=== PATIENT | female | born 1960 | race Caucasian/White ===

== ENCOUNTER → 2020-08-25 | Outpatient (CLI) | payer OTHER ==
--- NOTE | 2020-08-25 08:47 | US ---
EXAMINATION TYPE: US carotid duplex BILAT DATE OF EXAM: 08/25/2020 COMPARISON: NONE CLINICAL HISTORY: R09.89 Carotid Bruit R01.1 Cardiac Murmur. Bruit, pt has no complaints at this time EXAM MEASUREMENTS: RIGHT: Peak Systolic Velocity (PSV) cm/sec ----- Right CCA: 93.8 ----- Right ICA: 120 ----- Right ECA: 131 ICA/CCA ratio: 1.3 RIGHT: End Diastole cm/sec ----- Right CCA: 14.9 ----- Right ICA: 34.5 ----- Right ECA: 15.3 LEFT: Peak Systolic Velocity (PSV) cm/sec ----- Left CCA: 144 ----- Left ICA: 132 ----- Left ECA: 125 ICA/CCA ratio: 0.9 LEFT: End Diastole cm/sec ----- Left CCA: 29.2 ----- Left ICA: 43.7 ----- Left ECA: 18.9 VERTEBRALS (direction of flow): Right Vertebral: Antegrade Left Vertebral: Antegrade Rhythm: Normal No significant stenosis seen, left ICA tortuous Whelan scale images show no significant focal plaque at carotid bulb level bilaterally. Increased veloc ity bilateral common carotid arteries raises concern for underlying uncontrolled hypertension. No sig nificant increased velocity in the internal carotid arteries bilaterally. IMPRESSION: No hemodynamically significant stenosis. Suspect underlying uncontrolled hypertension. Correlate clinically. Criteria for Assigning % of Stenosis / Diameter reduction (Estimation based on the indirect measurements of the internal carotid artery velocities (ICA PSV). 1. Normal (no stenosis)=ICA PSV < 125 cm/s: ratio < 2.0: ICA EDV<40 cm/s. 2. Less than 50% stenosis=ICA PSV < 125 cm/s: ratio < 2.0: ICA EDV<40 cm/s. 3. 50 to 69% stenosis=ICA PSV of 125 to 230 cm/s: ration 2.0 ? 4.0: ICA EDV 40-100 cm/s. 4. Greater than 70% stenosis to near occlusion= ICA PSV > 230 cm/s: ratio > 4.0: ICA EDV > 100 cm/s. 5. Near occlusion= ICA PSV velocities may be low or undetectable: variable ratio and ICA EDV. 6. Total occlusion=unable to detect flow.
--- NOTE | 2020-08-25 11:55 | ECHOF ---
Referral Reason:R09.89 carotid bruit MEASUREMENTS -------- HEIGHT: 160.0 cm WEIGHT: 77.1 kg BP: RVIDd: 2.8 cm (< 3.3) IVSd: 1.1 cm (0.6 - 1.1) LVIDd: 4.9 cm (3.9 - 5.3) LVPWd: 1.1 cm (0.6 - 1.1) IVSs: 1.6 cm LVIDs: 3.3 cm LVPWs: 1.4 cm LA Diam: 2.9 cm (2.7 - 3.8) LAESV Index (A-L): 18.89 ml/m Ao Diam: 2.9 cm (2.0 - 3.7) AV Cusp: 2.1 cm (1.5 - 2.6) MV EXCURSION: 11.540 mm (> 18.000) MV EF SLOPE: 31 mm/s (70 - 150) EPSS: 1.2 cm MV E Charles: 1.10 m/s MV DecT: 190 ms MV A Charles: 0.85 m/s MV E/A Ratio: 1.29 FINDINGS -------- Sinus rhythm. This was a technically adequate study. The left ventricular size is normal. There is borderline concentric left ventricular hypertrophy. Overall left ventricular systolic function is normal with, an EF between 55 - 60 %. The right ventricle is normal in size. Normal LA size by volume 22+/-6 ml/m2. The right atrial size is normal. Interatrial and interventricular septum intact. Aortic valve is trileaflet and is mildly thickened. The mitral valve is normal. Mild mitral regurgitation is present. The tricuspid valve appears structurally normal. Mild tricuspid regurgitation present. There is no pulmonic regurgitation present. The aortic root size is normal. Normal inferior vena cava with normal inspiratory collapse consistent with estimated right atrial pre ssure of 5 mmHg. There is no pericardial effusion. CONCLUSIONS -------- 1. There is borderline concentric left ventricular hypertrophy. 2. Overall left ventricular systolic function is normal with, an EF between 55 - 60 %. 3. Normal LA size by volume 22+/-6 ml/m2. 4. Aortic valve is trileaflet and is mildly thickened. 5. Mild mitral regurgitation is present. 6. Mild tricuspid regurgitation present. 7. There is no pericardial effusion. GENERATION TECHNICIAN: Bianca Giordano RDCS
== END | disposition home or self-care (01) ==
LOC: RADUSWWP 07:49
PROVIDERS: ATTEND Family Medicine
DX: I08.3 Combined rheumatic disorders of mitral, aortic and tricuspid valves (principal); R09.89 Other specified symptoms and signs involving the circulatory and respiratory systems
CPT/HCPCS: 93306; 93880

== ENCOUNTER → 2020-09-02 | Outpatient (CLI) | payer OTHER | END | disposition home or self-care (01) | LOC: LABWHC1 16:09 | PROVIDERS: ATTEND Family Medicine | DX: J06.9 Acute upper respiratory infection, unspecified (principal) | CPT/HCPCS: U0003; C9803 ==

== ENCOUNTER → 2020-10-20 | Outpatient (CLI) | payer BC ==
--- NOTE | 2020-10-21 08:55 | CTL ---
EXAMINATION TYPE: CT Low Dose Lung DATE OF EXAM ORDERED: 10/20/2020 HISTORY: Tobacco use. Lung cancer screening CT DLP: 72.70 mGycm Automated exposure control for dose reduction was used. SCREENING VISIT: Initial COMPARISON: None TECHNIQUE: Low dose computed tomography scan was performed through the chest at 1 mm thick sections a nd reconstructed images in the coronal plane at [address] DIAGNOSTIC QUALITY: Satisfactory FINDINGS: LUNG NODULES: None. LUNGS: COPD: Severity: None Fibrosis: Severity: None Lymph nodes: None Other findings: None RIGHT PLEURAL SPACE: Effusion: None Calcification: Some pleural calcification in the posterior medial right apex. Series 4 image 38 Thickening: None Pneumothorax: None LEFT PLEURAL SPACE: Effusion: None Calcification: None Thickening: None Pneumothorax: None HEART: Heart Size: Normal Coronary calcification: Mild to moderate Pericardial effusion: None OTHER FINDINGS: Upper abdomen: Normal Bony thorax: Normal Supraclavicular region: Normal Other: Ascending thoracic aorta at the level of main pulmonary artery is 3.5 cm. Main pulmonary arter y the bifurcation is 2.6 cm. IMPRESSION: 1. No suspicious changes to suggest neoplasm FOLLOW UP CT CHEST RECOMMENDATION: Low-dose CT chest one year CT LUNG RAD: Lung-Rad 2 Benign Appearance or Behavior
--- NOTE | 2020-10-21 10:31 | BD ---
EXAMINATION TYPE: Axial Bone Density DATE OF EXAM: 10/20/2020 COMPARISON: NONE CLINICAL HISTORY: Height: 5 FT 3 /4 IN Weight: 177 FRAX RISK QUESTIONS: Alcohol (3 or more units per day): NO Family History (Parent hip fracture): YES Glucocorticoids (More than 3mos): NO (Ex: prednisone, prednisolone, methylprednisolone, dexamethasone, and hydrocortisone). History of Fracture in Adulthood: YES Secondary Osteoporosis: 1. Type 1 Diabetes: NO 2. Hyperthyroidism: NO 3. Menopause before 45: NO 4. Malnutrition: NO 5. Chronic liver disease: NO Rheumatoid Arthritis: NO Current Tobacco Use: YES RISK FACTORS HISTORY OF: History of Wrist Fracture: RT WRIST When: 1986 Surgery to Spine/Hip(right/left)/Wrist (right/left): NO Family History of Osteoporosis: NO Active: NO Diet low in dairy products/other sources of calcium: NO Postmenopausal woman: TOTAL HYST AGE 46 Take estrogen and/or progesterone medications: TOOK HRT 2-3 MONTHS FOLLOWING HYST NO LONGER TAKES Lost more than 2 inches in height since high school: NO MEDICATIONS: Additional Medications: ADVAIR,INHALER FOR ALLERGIES Additional History: EXAM MEASUREMENTS: Bone mineral densitometry was performed using the [employer] System. Bone mineral density as measured about the Lumbar spine is: ----- L1-L4(G/cm2): 1.179 T Score Values are as follows: ----- L2: -1.4 ----- L3: -0.9 ----- L4: 2.4 ----- L1-L4: 0.0 BASELINE Bone mineral density about the R hip (g/cm2): 0.686 Bone mineral density about the L hip (g/cm2): 0.762 T Score values are as follows: -----R Neck: -2.5 -----L Neck: -2.0 -----R Total: -2.0 -----L Total: -1.2 BASELINE IMPRESSION: osteopenia NOTE: T-SCORE=SD OF THE YOUNG ADULT MEAN.
--- NOTE | 2020-10-22 11:00 | MM ---
Reason for exam: screening (asymptomatic). Last mammogram was performed 3 years and 7 months ago. History: Patient is postmenopausal. Took hormonal contraceptives for 2 years. Took estrogen for 3 months. Physical Findings: A clinical breast exam by your physician is recommended on an annual basis and results should be correlated with mammographic findings. MG Screening Mammo w CAD Bilateral CC and MLO view(s) were taken. Prior study comparison: March 09, 2017, mammogram, performed at [facility]. June 12, 2015, mammogram, performed at [facility]. There are scattered fibroglandular densities. No significant changes when compared with prior studies. ASSESSMENT: Benign, BI-RAD 2 RECOMMENDATION: Routine screening mammogram of both breasts in 1 year.
== END | disposition home or self-care (01) ==
LOC: RADMAMWWP 15:56
PROVIDERS: ATTEND Family Medicine
DX: Z12.31 Encounter for screening mammogram for malignant neoplasm of breast (principal); Z12.2 Encounter for screening for malignant neoplasm of respiratory organs; M85.80 Other specified disorders of bone density and structure, unspecified site; F17.210 Nicotine dependence, cigarettes, uncomplicated; Z78.0 Asymptomatic menopausal state
CPT/HCPCS: 71271; 77067; 77080

== ENCOUNTER → 2022-01-03 | Outpatient (CLI) | payer BC ==
--- NOTE | 2022-01-03 16:11 | CT ---
EXAMINATION TYPE: CT abdomen pelvis wo con DATE OF EXAM: 01/03/2022 COMPARISON: None available HISTORY: flank pain and left anterior pain CT DLP: 936 mGycm Automated exposure control for dose reduction was used. TECHNIQUE: Helical acquisition of images was performed from the lung bases through the pelvis. FINDINGS: LUNG BASES: No significant abnormality is appreciated. LIVER/GB: No significant abnormality is appreciated. PANCREAS: Mild fatty infiltration of the pancreas. SPLEEN: Bulky spleen measuring 13.2 cm. ADRENALS: No significant abnormality is seen. KIDNEYS: 5 mm at least partially obstructing stone is seen at the left pelviureteric junction with di lated left renal collecting system. 3 mm nonobstructing stone is seen at the lower pole of the left k idney. Mild left renal pelvis urothelial thickening, possibly related to chronic inflammatory/infecti ous process. Branching stone seen at the lower pole of right kidney measuring up to 13 mm. No hydrour eter bilaterally or right-sided hydronephrosis. Suspected bilateral renal cysts without gross suspici ous feature, suboptimally assessed by this CT scan and more numerous on the right side. FREE AIR: No free air is visualized RETROPERITONEAL ADENOPATHY: None visualized REPRODUCTIVE ORGANS: Previous hysterectomy. No gross adnexal mass. URINARY BLADDER: No significant abnormality is seen. PELVIC ADENOPATHY: None visualized. OSSEOUS STRUCTURES: Degenerative changes of the lower lumbar spine. BOWEL: Scattered uncomplicated colonic diverticulosis. OTHER: Scattered arterial atherosclerotic calcifications. Infrarenal abdominal aortic ectasia measuri ng up to 2.2 cm. No sizable ascites. IMPRESSION: At least partially obstructing stone measuring 5 mm at the left pelviureteric junction as described hari rodríguez. Associated infection cannot be excluded. Recommend correlation with urinalysis results. Nonobst ructing bilateral renal calculi larger on the right side. Other incidental findings as described jeramy allen
== END | disposition home or self-care (01) ==
LOC: RADCTMAIN 13:15
PROVIDERS: ATTEND Nurse Practitioner Family
DX: N20.0 Calculus of kidney (principal)
CPT/HCPCS: 74176

== ENCOUNTER → 2022-01-07 | Outpatient (CLI) | payer BC ==
[2022-01-07 18:04] LABS: African American GFR (CKD) 65.5 (60.0-200.0); Albumin 4.2 g/dL (3.8-4.9); Albumin/Globulin Ratio 2.14 (1.60-3.17); Anion Gap 10.1 mmol/L (10.00-18.00); BUN/Creat Ratio 21.43 Ratio (12.00-20.00); Blood Urea Nitrogen 22.5 mg/dL (9.0-27.0); Calcium 9.1 mg/dL (8.7-10.3); Carbon Dioxide 24.4 mmol/L (20.0-27.5); Non-African American GFR(CKD) 56.5 (60.0-200.0); Potassium 4.1 mmol/L (3.5-5.5); Total Bilirubin 0.3 mg/dL (0.30-1.20); Total Protein 6.1 g/dL (6.2-8.2)
[2022-01-07 18:11] LABS: Basophils # (A) 0.03 X 10*3/uL (0.00-0.10); Basophils % (A) 0.4 %; Eosinophils # (A) 0.23 X 10*3/uL (0.04-0.35); Eosinophils % (A) 3.4 %; HCT 36.6 % (37.2-46.3); HGB 11.9 g/dL (12.0-15.0); Immature Grans, Automated 0.3 %; Lymphocytes # (A) 1.47 X 10*3/uL (0.90-5.00); Lymphocytes % (A) 21.8 %; MCH 30.5 pg (27.0-32.0); MCHC 32.5 g/dL (32.0-37.0); MCV 93.8 fL (80.0-97.0); Mean Platelet Volume 10.3 fL (9.5-12.2); Monocytes # (A) 0.43 X 10*3/uL (0.20-1.00); Monocytes % (A) 6.4 %; NRBC Per 100 WBC 0 /100 WBCS (0.0-0.0); Neutrophils # (A) 4.56 X 10*3/uL (1.80-7.70); Neutrophils % (A) 67.7 %; Platelet Count 336 X 10*3/uL (140-440); RDW 12.7 % (11.5-14.5); WBC 6.74 X 10*3/uL (4.50-10.00)
[2022-01-07 18:15] LABS: Appearance,Urine Cloudy (Clear); Bilirubin,Urine Negative (Negative); Blood,Urine Negative (Negative); Color,Urine Yellow (Yellow); Ketones,Urine Negative (Negative); Nitrite,Urine Negative (Negative); PH, Urine 5.5 (5.0-8.0); Specific Gravity,Urine 1.016 (1.001-1.030); Urobilinogen,Urine 0.2 (0.2,1.0)
[2022-01-07 18:21] LABS: Bacteria,Urine None Seen /HPF (None Seen)
== END | disposition home or self-care (01) ==
LOC: LABPAT 13:05
PROVIDERS: ATTEND Urology
DX: Z01.812 Encounter for preprocedural laboratory examination (principal); N20.1 Calculus of ureter; R31.29 Other microscopic hematuria
CPT/HCPCS: 80053; 81001; 85025; 87086

== ENCOUNTER 2022-01-12 06:59 | Day surgery (SDC) | payer BC ==
[2022-01-10 15:12] VITALS: BMI 30.5
--- NOTE | 2022-01-11 19:35 | P.GSHP ---
History of Present Illness H&P Date: 01/11/22 61 yo female with stone disease. recently presented to my office with an obstructing upj stone, 6 mm as well as bilateral renal stones Because of her persistent pain she wants treatment. We discussed treatment options. He comes for left ureteroscopy with laser lithotripsy and probable stent placement - Constitutional Constitutional: Denies chills, Denies fever - EENT Eyes: denies blurred vision, denies pain Ears, nose, mouth and throat: Denies headache, Denies sore throat - Cardiovascular Cardiovascular: Denies chest pain, Denies shortness of breath - Respiratory Respiratory: Denies cough, Denies 7 - Gastrointestinal Gastrointestinal: Denies abdominal pain, Denies diarrhea, Denies nausea, Denies vomiting - Genitourinary (Female) Genitourinary: Denies dysuria, Denies hematuria - Genitourinary (Male) Genitourinary: Denies dysuria, Denies hematuria - Musculoskeletal Musculoskeletal: Denies myalgias - Integumentary Integumentary: Denies pruritus, Denies rash - Neurological Neurological: Denies numbness, Denies weakness - Psychiatric Psychiatric: Denies anxiety, Denies depression - Endocrine Endocrine: Denies fatigue, Denies weight change Past Medical History Past Medical History: Asthma, COPD Additional Past Medical History / Comment(s): SEASONAL ALLERGIES. KIDNEY STONES History of Any Multi-Drug Resistant Organisms: None Reported Past Surgical History: Hysterectomy, Orthopedic Surgery, Tonsillectomy Additional Past Surgical History / Comment(s): BILAT BUNIONECTOMY. LT ACHILLES SURGERY Past Anesthesia/Blood Transfusion Reactions: Motion Sickness Smoking Status: Current every day smoker - Past Family History Mother Family Medical History: No Reported History Medications and Allergies Home Medications Medication Instructions Recorded Confirmed Type Fluticasone Propion/Salmeterol 1 inhalation PO BID 01/10/22 01/10/22 History [Advair 250-50 Diskus] Levocetirizine Dihydrochloride 5 mg PO HS 01/10/22 01/10/22 History [Xyzal] Tamsulosin [Flomax] 0.4 mg PO DAILY 01/10/22 01/10/22 History Allergies Allergy/AdvReac Type Severity Reaction Status Date / Time No Known Allergies Allergy Verified 01/10/22 15:05 Surgical - Exam - General well developed, well nourished, no distress - Eyes normal ocular movement, no icteric - ENT no hearing loss, no congestion - Neck no masses, trachea midline - Respiratory normal respiratory effort, clear to auscultation - Abdomen Abdomen: soft, non tender, no guarding, no rigid, no rebound - Integumentary no rash, no abnormal pigmentation - Neurologic no disoriented, no combative - Psychiatric oriented to time, oriented to person, oriented to place, speech is normal, memory intact Results - Imaging CT scan - abdomen: report reviewed, image reviewed CT scan - pelvis: report reviewed, image reviewed Assessment and Plan Assessment: Impression: Left ureteral stone with obstruction Plan: cysto with left ureteroscopy with laser lithotripsy and possible stent placement.
[~2022-01-12 06:59] MED LIST: AMPICILLIN 1,000 MG in SODIUM CHLORIDE 0.9% 50 ML IVPB PRN; DEXAMETHASONE SOD PHOSPHATE 4 MG/ML 1 ML VIAL IV ONE; GENTAMICIN 100 MG in SODIUM CHLORIDE 0.9% 100 ML IVPB PRN; LACTATED RINGERS 1,000 ML IV SCH; LIDOCAINE 1% (10MG/ML) FOR IV START INTRADERMA PRN; ONDANSETRON 4 MG/2 ML VIAL IVP ONE
[2022-01-12] MEDS ORDERED: HYDROmorphone 0.5 MG/0.5 ML SYRINGE IVP PRN (07:00)
--- NOTE | 2022-01-12 08:22 | XR ---
EXAMINATION TYPE: XR KUB DATE OF EXAM: 01/12/2022 COMPARISON: CT dated 01/03/2022 INDICATION: Preoperative x-ray for renal stones. TECHNIQUE: Single AP view of the abdomen FINDINGS: Left-sided 4 mm radiopaque shadow likely representing the obstructing left renal pelvis stone seen on the previous CT scan. Multiple right lower pole renal calculi measuring up to 12 mm. Left pelvic phl eboliths. IMPRESSION: As above.
[2022-01-12] MEDS ORDERED: MIDAZOLAM 2 MG/2 ML VIAL ONE (08:31)
[2022-01-12] MEDS ORDERED: LIDOCAINE 2% INJ 20 MG/ML (2 ML VIAL) ONE (08:31)
[2022-01-12] MEDS ORDERED: PHENYLEPHRINE-0.9% NACL SYG 1,000 MCG/10 ML SYRINGE ONE (08:31)
[2022-01-12] MEDS ORDERED: fentaNYL (PF) 50 MCG/ML 2 ML AMP ONE (08:31)
[2022-01-12] MEDS ORDERED: SUCCINYLCHOLINE CHLORIDE 100 MG/5 ML SYR IV ONE (08:31)
[2022-01-12] MEDS ORDERED: PROPOFOL 10 MG/ML 20 ML VIAL IV ONE (08:31)
[2022-01-12] MEDS ORDERED: IOPAMIDOL-370 50ML BTL IRRIGATION ONE ×2 (09:06)
[2022-01-12] MEDS ORDERED: LACTATED RINGERS 1,000 ML IV ONE (09:38)
--- NOTE | 2022-01-12 10:00 | P.OP ---
Date of Procedure: 01/12/22 Preoperative Diagnosis: Obstructing left UPJ stone, left renal stone Postoperative Diagnosis: Same Procedure(s) Performed: Cystoscopy, left ureteroscopy, laser lithotripsy, placement of 6 x 24 stent Anesthesia: ARIS Surgeon: Twin Barroso Estimated Blood Loss (ml): 0 Pathology: none sent Condition: stable Disposition: PACU Indications for Procedure: Patient is 61. She has a 6 mm UPJ stone on the left as well as a small stone in the left lower pole calyx. The stone was obstructing significantly. She wishes treatment. Shockwave lithotripsy will not be here for another couple weeks. She comes ureteroscopy laser lithotripsy left Description of Procedure: Patient brought to open suite given general anesthetic placed lithotomy position with sterile prep and drape. Cystoscopy Foroblique lens and 21-Thai sheath identifies a normal urethra. Bladder fuentes unremarkable. The left ureteral orifice is identified. It is intubated with an 035 wire is passed up into the renal pelvis. I attempted to intubate the left ureteral orifice with a 11-13- Thai reentry sheath but there is too much resistance. I passed the semirigid ureteroscope up to the point of resistance and there is a stricture in the ureter. I then repassed the wire into the ureter. Over the wires passed 4cm/15-Thai dilating balloon in the ureter is dilated. There is a waist that is broken in the area of stricture in the left ureter. I then re-introduce the ureter ureteral reentry sheath in the left ureter up into the proximal ureter. I passed the flexible ureteroscope through the sheath up to the UPJ where there is an impacted stone that is pop back into the kidney. Pass the flexible scope into the kidney and with the 200 laser probe fracture the stone into tiny fragments. I then identify the stone in the lower pole calyx and fracture. Then of the procedure there is no significant remaining fragments that I can identify. Because of the ureteral stricture and the obstruction and the UPJ left ureteral stent will be placed. I reintroduced the wire into the left renal pelvis. I removed the ureteroscope. Over the wires and passed a 6 x 24 double- J catheter that coils in the renal pelvis and the bladder. The bladder strain the patient is awakened and returned recovery room good condition. She'll be discharged home upon recovery. She'll come to the office for left stent removal at one week.
[2022-01-12 10:07] VITALS: TEMP 96.8
[2022-01-12 11:32] VITALS: RESP 16
[2022-01-12 11:55] VITALS: BP 153/76; PULSE 65
--- NOTE | 2022-01-12 20:31 | FL ---
EXAMINATION TYPE: FL guidance operating room DATE OF EXAM: 01/12/2022 CLINICAL HISTORY: Left ureteral stone TECHNIQUE: Fluoroscopic guided procedure COMPARISON: X-ray performed earlier same day FINDINGS: Fluoroscopic guidance was provided during the procedure. A total of 39 seconds of fluorosc opic time was utilized during the procedure and 2 spot images were acquired. IMPRESSION: As Above.
== END 2022-01-12 12:15 | disposition home or self-care (01) ==
LOC: OR 06:59
PROVIDERS: ATTEND Urology
DX: N20.2 Calculus of kidney with calculus of ureter (principal); N13.5 Crossing vessel and stricture of ureter without hydronephrosis; J44.9 Chronic obstructive pulmonary disease, unspecified; Z87.442 Personal history of urinary calculi; F17.200 Nicotine dependence, unspecified, uncomplicated; Z79.51 Long term (current) use of inhaled steroids; Z79.899 Other long term (current) drug therapy
CPT/HCPCS: 74018; 52356; C2625; C1769; C1758; J2250; J1100; J2405; J3010; J0290; J2370; J0330; J2704; J1170; Q9967; J2001

== ENCOUNTER → 2022-03-28 | Outpatient (CLI) | payer BC ==
--- NOTE | 2022-03-28 09:06 | XR ---
EXAMINATION TYPE: XR KUB DATE OF EXAM: 03/28/2022 8:31 AM INDICATION: Patient age:Female; 62 years old; Reason for study: N200 N201; [facility]. COMPARISON: 01/12/2022 TECHNIQUE: One radiographic view of the abdomen was obtained. FINDINGS: The bowel gas pattern is nonspecific without dilated loops of small or large bowel. There i s no evidence for organomegaly or pneumoperitoneum. The osseous structures are intact. Multilevel d isc degeneration changes throughout the spine. Fecal material and gas are demonstrated throughout the colon and rectum. Radiopaque density in the left renal sinus no definitively visualized on today's exam. Multiple pelvi c phlebolith are present. IMPRESSION: 1. Nonspecific bowel gas pattern without radiographic evidence for acute process. 2. No definitive evidence of renal calculus.
== END | disposition home or self-care (01) ==
LOC: RADXRMAIN 08:09
PROVIDERS: ATTEND Urology
DX: N20.0 Calculus of kidney (principal); N20.1 Calculus of ureter
CPT/HCPCS: 74018

== ENCOUNTER → 2022-03-29 | Outpatient (CLI) | payer BC ==
[2022-03-29 18:24] LABS: Basophils # (A) 0.03 X 10*3/uL (0.00-0.10); Basophils % (A) 0.4 %; Eosinophils # (A) 0.19 X 10*3/uL (0.04-0.35); Eosinophils % (A) 2.7 %; HCT 38.2 % (37.2-46.3); HGB 12.5 g/dL (12.0-15.0); Immature Grans, Automated 0.4 %; Lymphocytes # (A) 1.58 X 10*3/uL (0.90-5.00); Lymphocytes % (A) 22.2 %; MCH 30.7 pg (27.0-32.0); MCHC 32.7 g/dL (32.0-37.0); MCV 93.9 fL (80.0-97.0); Monocytes # (A) 0.43 X 10*3/uL (0.20-1.00); NRBC Per 100 WBC 0 /100 WBCS (0.0-0.0); Neutrophils # (A) 4.87 X 10*3/uL (1.80-7.70); Neutrophils % (A) 68.3 %; Platelet Count 263 X 10*3/uL (140-440); RBC 4.07 X 10*6/uL (4.10-5.20); RDW 13.3 % (11.5-14.5); WBC 7.13 X 10*3/uL (4.50-10.00)
[2022-03-29 19:16] LABS: African American GFR (CKD) 98.4 (60.0-200.0); Anion Gap 8.9 mmol/L (10.00-18.00); BUN/Creat Ratio 32.21 Ratio (12.00-20.00); Calcium 9.5 mg/dL (8.7-10.3); Non-African American GFR(CKD) 84.9 (60.0-200.0); Potassium 4.8 mmol/L (3.5-5.5)
[2022-03-29 21:07] LABS: Appearance,Urine Cloudy (Clear); Bilirubin,Urine Negative (Negative); Blood,Urine Large (Negative); Color,Urine Yellow (Yellow); Ketones,Urine Negative (Negative); Nitrite,Urine Negative (Negative); Urobilinogen,Urine 0.2 (0.2,1.0)
[2022-03-29 22:48] LABS: Bacteria,Urine None Seen /HPF (None Seen); Calcium Oxalate Crystals,Urine Present /LPF (None Seen)
== END | disposition home or self-care (01) ==
LOC: LABPAT 12:10
PROVIDERS: ATTEND Family Medicine
DX: Z01.812 Encounter for preprocedural laboratory examination (principal); N20.1 Calculus of ureter
CPT/HCPCS: 80048; 81001; 85025; 87086

== ENCOUNTER 2022-04-04 08:22 | Day surgery (SDC) | payer BC ==
[2022-03-31 15:05] VITALS: BMI 29.9
--- NOTE | 2022-04-03 17:54 | P.GSHP ---
History of Present Illness H&P Date: 04/03/22 62 yo female with a history of stones has a painful 11mm right upj stone comes for eswl right. Alternatives have been discussed. - Constitutional Constitutional: Denies chills, Denies fever - EENT Eyes: denies blurred vision, denies pain Ears, nose, mouth and throat: Denies headache, Denies sore throat - Cardiovascular Cardiovascular: Denies chest pain, Denies shortness of breath - Respiratory Respiratory: Denies cough, Denies 7 - Gastrointestinal Gastrointestinal: Denies abdominal pain, Denies diarrhea, Denies nausea, Denies vomiting - Genitourinary (Female) Genitourinary: Denies dysuria, Denies hematuria - Genitourinary (Male) Genitourinary: Denies dysuria, Denies hematuria - Musculoskeletal Musculoskeletal: Denies myalgias - Integumentary Integumentary: Denies pruritus, Denies rash - Neurological Neurological: Denies numbness, Denies weakness - Psychiatric Psychiatric: Denies anxiety, Denies depression - Endocrine Endocrine: Denies fatigue, Denies weight change Past Medical History Past Medical History: Asthma, COPD Additional Past Medical History / Comment(s): SEASONAL ALLERGIES. KIDNEY STONES History of Any Multi-Drug Resistant Organisms: None Reported Past Surgical History: Hysterectomy, Orthopedic Surgery, Tonsillectomy Additional Past Surgical History / Comment(s): BILAT BUNIONECTOMY. LT ACHILLES SURGERY. LT KIDNEY STONE SX-01/12/22 Past Anesthesia/Blood Transfusion Reactions: Motion Sickness Smoking Status: Current every day smoker - Past Family History Mother Family Medical History: No Reported History Medications and Allergies Home Medications Medication Instructions Recorded Confirmed Type Fluticasone Propion/Salmeterol 1 inhalation PO BID 01/10/22 03/31/22 History [Advair 250-50 Diskus] Levocetirizine Dihydrochloride 5 mg PO HS 01/10/22 03/31/22 History [Xyzal] Tamsulosin [Flomax] 0.4 mg PO DAILY 01/10/22 03/31/22 History Acetaminophen-Codeine 300-30mg 1 - 2 tab PO Q4-6H PRN 03/31/22 03/31/22 History [Tylenol w/codeine #3] Ketorolac Tromethamine 10 mg PO Q6HR PRN 03/31/22 03/31/22 History Allergies Allergy/AdvReac Type Severity Reaction Status Date / Time No Known Allergies Allergy Verified 03/31/22 14:53 Surgical - Exam - General well developed, well nourished, no distress - Eyes normal ocular movement, no icteric - ENT no hearing loss, no congestion - Neck no masses, trachea midline - Respiratory normal respiratory effort, clear to auscultation - Abdomen Abdomen: soft, non tender, no guarding, no rigid, no rebound - Integumentary no rash, no abnormal pigmentation - Neurologic no disoriented, no combative - Psychiatric oriented to time, oriented to person, oriented to place, speech is normal, memory intact Results - Imaging Abdominal x-ray: report reviewed, image reviewed Assessment and Plan Assessment: Impression: right upj stone, 11mm Plan: eswl right
[~2022-04-04 08:22] MED LIST changes: -AMPICILLIN 1,000 MG in SODIUM CHLORIDE 0.9% 50 ML IVPB PRN; -DEXAMETHASONE SOD PHOSPHATE 4 MG/ML 1 ML VIAL IV ONE; -GENTAMICIN 100 MG in SODIUM CHLORIDE 0.9% 100 ML IVPB PRN; -ONDANSETRON 4 MG/2 ML VIAL IVP ONE
--- NOTE | 2022-04-04 08:43 | XR ---
EXAMINATION TYPE: XR KUB DATE OF EXAM: 04/04/2022 COMPARISON: 03/28/2022 INDICATION: Right renal calculus TECHNIQUE: Single view abdomen supine view FINDINGS: There is a normal bowel gas pattern. Psoas margins are normal. No organomegaly is present. There is a 1.2 similar calcification over the inferior pole right kidney. A 1.1 cm calcification appe ars to be at the L3-4 disc level may be within the proximal ureter on the right. Few smaller mid righ t renal calcifications are present. IMPRESSION: 1. 1.1 cm proximal right ureteral calcification with additional right renal stones present.
[2022-04-04] MEDS ORDERED: ONDANSETRON 4 MG/2 ML VIAL ONE (08:45)
[2022-04-04 09:01] VITALS: TEMP 98
[2022-04-04] MEDS ORDERED: DEXAMETHASONE SOD PHOSPHATE 4 MG/ML 1 ML VIAL IVP ONE (09:01)
[2022-04-04] MEDS ORDERED: ONDANSETRON 4 MG/2 ML VIAL IVP ONE (09:02)
[2022-04-04] MEDS ORDERED: PROPOFOL 10 MG/ML 20 ML VIAL IV ONE (09:14)
[2022-04-04] MEDS ORDERED: FUROSEMIDE 10 MG/ML 2 ML VIAL ONE (09:14)
[2022-04-04] MEDS ORDERED: fentaNYL (PF) 50 MCG/ML 2 ML AMP ONE (09:14)
[2022-04-04] MEDS ORDERED: MIDAZOLAM 2 MG/2 ML VIAL ONE (09:14)
--- NOTE | 2022-04-04 10:13 | P.OP ---
Date of Procedure: 04/04/22 Preoperative Diagnosis: Right UPJ calculus Postoperative Diagnosis: Same Procedure(s) Performed: Right extracorporal shockwave lithotripsy (ESWL) Anesthesia: MAC Surgeon: Dmitry Cole Estimated Blood Loss (ml): 0 IV fluids (ml): 500 Pathology: none sent Condition: stable Disposition: PACU Indications for Procedure: The patient is a 62-year-old white female who presents with right flank pain due to an 11 mm right UPJ calculus. Alternative treatment options were reviewed and she has elected to undergo ESWL. Operative Findings: Fragmentation of the calculus is noted to occur. Description of Procedure: The patient was taken to the operating room and placed on the Dornier iPinYou Delta II lithotripter in the supine position. The calculus was seen on biplanar fluoroscopy. Lasix 10 mg was given intravenously. Once the patient was properly positioned and sedated, lithotripsy was performed. The energy level was gradually increased per protocol, to an energy level of 5. After 200 shocks were administered, a 2 minute pause was instituted per protocol. A total of 2500 shocks were given at a rate of 80 shocks per minute. Fluoroscopy was utilized at a minimum to ensure proper positioning and determine the treatment status. The calculus changed in appearance, consistent with fragmentation. The patient tolerated the procedure well was taken to the recovery room in stable condition. Instructions were given to strain the urine, and the patient will follow-up within one week.
[2022-04-04 10:28] VITALS: BP 139/69; PULSE 75; RESP 15
== END 2022-04-04 11:18 | disposition home or self-care (01) ==
LOC: ORWHC2ENDO 08:22
PROVIDERS: ATTEND Urology
DX: N20.1 Calculus of ureter (principal); J44.9 Chronic obstructive pulmonary disease, unspecified; F17.210 Nicotine dependence, cigarettes, uncomplicated; Z87.442 Personal history of urinary calculi; Z90.89 Acquired absence of other organs; Z98.890 Other specified postprocedural states; Z90.710 Acquired absence of both cervix and uterus
CPT/HCPCS: 74018; 50590; J2250; J1100; J1940; J2405; J3010; J2704

== ENCOUNTER → 2022-04-11 | Outpatient (CLI) | payer BC ==
--- NOTE | 2022-04-11 08:23 | XR ---
EXAMINATION TYPE: XR KUB DATE OF EXAM: 04/11/2022 8:05 AM CLINICAL HISTORY: Kidney stones TECHNIQUE: Single supine KUB image of the abdomen is obtained. COMPARISON: Most recent abdominal x-ray one week earlier. FINDINGS: Approximately 10 scattered right renal calculi identified on current study. Dominant 11 mm calculus near the inferior L3 vertebra is grossly stable in size and position from most recent x-ray presumed near UPJ. No definite left-sided nephrolithiasis. Scattered tiny left pelvic phlebolith inci dentally noted. Somewhat prominent spleen redemonstrated. Overall nonobstructive bowel gas pattern. Osseous structure s are intact. IMPRESSION: As above.
== END | disposition home or self-care (01) ==
LOC: RADXRMAIN 07:52
PROVIDERS: ATTEND Urology
DX: N20.0 Calculus of kidney (principal)
CPT/HCPCS: 74018

== ENCOUNTER → 2022-04-23 | Outpatient (CLI) | payer BC ==
--- NOTE | 2022-04-23 10:18 | CT ---
EXAMINATION TYPE: CT abdomen pelvis wo con CT DLP: 637.4 mGycm, Automated exposure control for dose reduction was used. DATE OF EXAM: 04/23/2022 8:17 AM COMPARISON: CT abdomen pelvis 01/03/2022 CLINICAL INDICATION:Female, 62 years old with history of R31.0 Gross hematuria; Gross hematuria, hist ory of kidney stones TECHNIQUE: Axial CT of the abdomen and pelvis. Sagittal and coronal reformats were created on a [id number] outdoors workstation. Contrast used: None Oral contrast used: without Oral Contrast FINDINGS: LOWER CHEST: Unremarkable ABDOMEN LIVER: Unremarkable GALLBLADDER AND BILE DUCTS: Unremarkable. PANCREAS: Unremarkable. SPLEEN: Unremarkable. ADRENAL GLANDS: Unremarkable. KIDNEYS AND URETERS: No evidence of left hydronephrosis or renal calculus. There is right renal calcu sarah measuring up to 9 mm in the inferior pole. Multiple cysts are present. Mild dilation of the right renal collecting system with extensive calculi within the distal right ureter. There is at least 8 c alculi ranging in sizes stacked in the distal ureter extending along the length of approximately 6.3 cm and terminating near the right ureterovesicular junction. PELVIS BLADDER: The bladder is suboptimally visualized without contrast. REPRODUCTIVE: Unremarkable. ABDOMEN & PELVIS STOMACH AND BOWEL: No evidence of bowel obstruction. Scattered colonic diverticula present. Appendix is normal. PERITONEUM: No evidence of pneumoperitoneum or free fluid. VASCULATURE: No evidence of aortic aneurysm. Atherosclerosis of the arterial vasculature. MUSCULOSKELETAL: No acute osseous abnormalities LYMPH NODES: No gross evidence for lymphadenopathy. SOFT TISSUE/ABDOMINAL WALL: Unremarkable IMPRESSION: 1. Mild/moderate right hydronephrosis secondary to multiple calculi in the distal right ureter. Ther e are at least 8 calculi ranging in sizes stacked in the distal right ureter extending along the angel th of approximately 6.3 cm and abutting up to the right ureterovesicular junction. These calculi are new from 01/03/2022. 2. Urinary bladder is nondistended and poorly visualized. 3. The left renal collecting system is clear of hydronephrosis or calculus. 4. Multiple right renal cysts. 5. Colonic diverticulosis.
== END | disposition home or self-care (01) ==
LOC: RADCTMAIN 07:59
PROVIDERS: ATTEND Urology
DX: N28.1 Cyst of kidney, acquired (principal); K57.30 Diverticulosis of large intestine without perforation or abscess without bleeding
CPT/HCPCS: 74176

== ENCOUNTER → 2022-04-26 | Outpatient (CLI) | payer BC ==
[2022-04-27 03:00] LABS: Basophils # (A) 0.03 X 10*3/uL (0.00-0.10); Basophils % (A) 0.4 %; Eosinophils # (A) 0.25 X 10*3/uL (0.04-0.35); Eosinophils % (A) 3.5 %; HGB 11.6 g/dL (12.0-15.0); Immature Grans, Automated 0.3 %; Lymphocytes # (A) 1.55 X 10*3/uL (0.90-5.00); Lymphocytes % (A) 21.5 %; MCH 30.4 pg (27.0-32.0); MCHC 33.1 g/dL (32.0-37.0); MCV 91.6 fL (80.0-97.0); Mean Platelet Volume 10.7 fL (9.5-12.2); Monocytes # (A) 0.52 X 10*3/uL (0.20-1.00); Monocytes % (A) 7.2 %; NRBC Per 100 WBC 0 /100 WBCS (0.0-0.0); Neutrophils # (A) 4.85 X 10*3/uL (1.80-7.70); Neutrophils % (A) 67.1 %; Platelet Count 290 X 10*3/uL (140-440); RBC 3.82 X 10*6/uL (4.10-5.20); RDW 13.2 % (11.5-14.5); WBC 7.22 X 10*3/uL (4.50-10.00)
[2022-04-27 08:15] LABS: African American GFR (CKD) 67.3 (60.0-200.0); Anion Gap 9.7 mmol/L (10.00-18.00); BUN/Creat Ratio 27.25 Ratio (12.00-20.00); Blood Urea Nitrogen 27.8 mg/dL (9.0-27.0); Carbon Dioxide 24.3 mmol/L (20.0-27.5); Non-African American GFR(CKD) 58.1 (60.0-200.0); Potassium 4.4 mmol/L (3.5-5.5)
[2022-04-27 09:35] LABS: Appearance,Urine Turbid (Clear); Bacteria,Urine None Seen /HPF (None Seen); Bilirubin,Urine Negative (Negative); Blood,Urine Large (Negative); Calcium Oxalate Crystals,Urine Present /LPF (None Seen); Color,Urine Dark Yellow (Yellow); Ketones,Urine Trace mg/dL (Negative); Nitrite,Urine Negative (Negative); Specific Gravity,Urine 1.031 (1.001-1.030)
== END | disposition home or self-care (01) ==
LOC: LABPAT 15:48
PROVIDERS: ATTEND Urology
DX: Z01.812 Encounter for preprocedural laboratory examination (principal); N20.1 Calculus of ureter
CPT/HCPCS: 80048; 81001; 85025; 87086

== ENCOUNTER 2022-05-04 08:45 | Day surgery (SDC) | payer BC ==
--- NOTE | 2022-05-03 15:33 | P.GSHP ---
History of Present Illness H&P Date: 05/03/22 62 yo female who underwent right eswl. She has developed a steintrausse in the distal right ureter causing pain. SHe comes for a right ureteroscopy with laser lithotripsy, stone basketing and possible stent. the alternatives have been discussed. - Constitutional Constitutional: Denies chills, Denies fever - EENT Eyes: denies blurred vision, denies pain Ears, nose, mouth and throat: Denies headache, Denies sore throat - Cardiovascular Cardiovascular: Denies chest pain, Denies shortness of breath - Respiratory Respiratory: Denies cough, Denies 7 - Gastrointestinal Gastrointestinal: Denies abdominal pain, Denies diarrhea, Denies nausea, Denies vomiting - Genitourinary (Female) Genitourinary: Denies dysuria, Denies hematuria - Genitourinary (Male) Genitourinary: Denies dysuria, Denies hematuria - Musculoskeletal Musculoskeletal: Denies myalgias - Integumentary Integumentary: Denies pruritus, Denies rash - Neurological Neurological: Denies numbness, Denies weakness - Psychiatric Psychiatric: Denies anxiety, Denies depression - Endocrine Endocrine: Denies fatigue, Denies weight change Past Medical History Past Medical History: Asthma, COPD, Osteoarthritis (OA) Additional Past Medical History / Comment(s): SEASONAL ALLERGIES. KIDNEY STONES History of Any Multi-Drug Resistant Organisms: None Reported Past Surgical History: Hysterectomy, Orthopedic Surgery, Tonsillectomy Additional Past Surgical History / Comment(s): BILAT BUNIONECTOMY, lithotripsy,. LT ACHILLES SURGERY Past Anesthesia/Blood Transfusion Reactions: Motion Sickness Smoking Status: Current every day smoker - Past Family History Mother Family Medical History: No Reported History Medications and Allergies Home Medications Medication Instructions Recorded Confirmed Type Fluticasone Propion/Salmeterol 1 inhalation PO BID 01/10/22 05/02/22 History [Advair 250-50 Diskus] Levocetirizine Dihydrochloride 5 mg PO HS 01/10/22 05/02/22 History [Xyzal] Acetaminophen [Tylenol Extra 500 mg PO Q6H PRN 05/02/22 05/02/22 History Strength] Cholecalciferol [Vitamin D3 (25 25 mcg PO DAILY 05/02/22 05/02/22 History Mcg = 1000 Iu)] Allergies Allergy/AdvReac Type Severity Reaction Status Date / Time No Known Allergies Allergy Verified 05/03/22 07:55 Surgical - Exam - General well developed, well nourished, no distress - Eyes normal ocular movement, no icteric - ENT no hearing loss, no congestion - Neck no masses, trachea midline - Respiratory normal respiratory effort, clear to auscultation - Abdomen Abdomen: soft, non tender, no guarding, no rigid, no rebound - Integumentary no rash, no abnormal pigmentation - Neurologic no disoriented, no combative - Psychiatric oriented to time, oriented to person, oriented to place, speech is normal, memory intact Results - Imaging Abdominal x-ray: report reviewed, image reviewed CT scan - abdomen: report reviewed, image reviewed CT scan - pelvis: report reviewed, image reviewed Assessment and Plan Assessment: Impression: right steinstrausse post eswl right. Plan: right ureteroscopy with laser lithotripsy and possible stent.
[~2022-05-04 08:45] MED LIST changes: +AMPICILLIN 1,000 MG in SODIUM CHLORIDE 0.9% 50 ML IVPB PRN; +DEXAMETHASONE SOD PHOSPHATE 4 MG/ML 1 ML VIAL IV ONE; +GENTAMICIN 100 MG in SODIUM CHLORIDE 0.9% 100 ML IVPB PRN; +HYDROmorphone 0.5 MG/0.5 ML SYRINGE IVP PRN; -LACTATED RINGERS 1,000 ML IV SCH; -LIDOCAINE 1% (10MG/ML) FOR IV START INTRADERMA PRN; +ONDANSETRON 4 MG/2 ML VIAL IVP ONE
[2022-05-04] MEDS: LACTATED RINGERS 1,000 ML IV SCH ×2 (09:30→10:41)
--- NOTE | 2022-05-04 09:35 | XR ---
EXAMINATION TYPE: XR KUB DATE OF EXAM: 05/04/2022 Comparison: 05/04/2022 Clinical History: 62-year-old female N20.1 right ureteral stones Findings: There is no oval 1.0 cm calcification projecting at the expected right kidney. Nonobstructive bowel g as pattern. Mild stool burden. The more numerous calcifications projecting in the right mid kidney se en on 04/11/2022 are no longer appreciated. Impression: A 1.0 cm oval calcification at the right mid abdomen likely renal calculus. The more numerous calcifi cations on the right seen on 04/11/2022 are not well demonstrated currently.
[2022-05-04] MEDS ORDERED: MIDAZOLAM 2 MG/2 ML VIAL ONE (10:37)
[2022-05-04] MEDS ORDERED: SUCCINYLCHOLINE CHLORIDE 200 MG/10 ML VIAL IV ONE (10:37)
[2022-05-04] MEDS ORDERED: LIDOCAINE 2% INJ 20 MG/ML (2 ML VIAL) ONE (10:37)
[2022-05-04] MEDS ORDERED: fentaNYL (PF) 50 MCG/ML 2 ML AMP ONE (10:37)
[2022-05-04] MEDS ORDERED: PROPOFOL 10 MG/ML 20 ML VIAL IV ONE (10:37)
[2022-05-04 11:56] VITALS: TEMP 98
--- NOTE | 2022-05-04 11:57 | P.OP ---
Date of Procedure: 05/04/22 Preoperative Diagnosis: Right ureteral Steinstrasse and right renal stone Postoperative Diagnosis: Right renal stone Procedure(s) Performed: Cystoscopy, right ureteroscopy, right uretero renoscopy with laser lithotripsy placement of 624 stent Anesthesia: ARIS Surgeon: Twin Barroso Estimated Blood Loss (ml): 0 Pathology: other (Stone) Condition: stable Disposition: PACU Indications for Procedure: The patient is 62. She had shockwave lithotripsy to right renal pelvic stone. Presented to the office postoperatively with a right ureteral Steinstrasse. Due to the pain and hydronephrosis the plan is for ureteroscopy laser lithotripsy and stone removal. She also has a right lower pole stone that that depending on how the ureteral stones goes to whether we'll treat that today. Description of Procedure: The patient is brought to the operating suite. She is given a general anesthetic. She's placed in lithotomy position with a sterile prep and drape. Cystoscopy with a Foroblique lens and 21-Dominican sheath identifies a normal urethra. Normal ureteral orifices. Normal bladder mucosa. I passed a 7-Dominican mini ureteroscope up the ureter and there are no stones in the distal ureter where the Steinstrasse had been. It has passed. Then through the ureteroscope I passed an 035 wire to the kidney. I removed the rigid ureteroscope and pass an 95-57-Inhofz reentry sheath. The inner sheath is removed and then I passed a flexible ureteroscope up into the right kidney. I deflected the right lower pole calyx with a 1 cm stone was identified. With the 275 laser probe the stone was broken into tiny fragments the larger fragments or stone basketed. At the end of the procedure I removed the ureteroscope but prior to this there were 35 wires placed back into the kidney. After removing the ureteroscope a 6 x 24 double-J catheters placed in the right renal pelvis and into the bladder. The bladder strain the patient is awakened and returned recovery in good condition. She tolerated the procedure well be discharged home upon recovery and found the office in one week for right stent removal.
--- NOTE | 2022-05-04 11:58 | FL ---
Intraoperative/procedural fluoroscopic services were provided for right ureteral stone. Total fluoros copy time is 25 seconds with a total of 1 submitted image to PACS. Please see the operative note for further details.
[2022-05-04 13:10] VITALS: BP 154/76; PULSE 77; RESP 20
== END 2022-05-04 13:43 | disposition home or self-care (01) ==
LOC: OR 08:45
PROVIDERS: ATTEND Urology
DX: N20.2 Calculus of kidney with calculus of ureter (principal); J44.9 Chronic obstructive pulmonary disease, unspecified; M19.90 Unspecified osteoarthritis, unspecified site; K21.9 Gastro-esophageal reflux disease without esophagitis; F17.210 Nicotine dependence, cigarettes, uncomplicated; Z90.710 Acquired absence of both cervix and uterus; Z90.49 Acquired absence of other specified parts of digestive tract; Z98.890 Other specified postprocedural states; Z79.51 Long term (current) use of inhaled steroids; Z79.899 Other long term (current) drug therapy; T75.3XXD Motion sickness, subsequent encounter
CPT/HCPCS: 52356; 82365; 74018; C1769; J2250; J0330; J1100; J2405; J3010; J1580; J0290; J2704; J2001

== ENCOUNTER → 2022-05-05 | Outpatient (CLI) | payer BC ==
--- NOTE | 2022-05-06 09:16 | MM ---
Reason for Exam: Screening (asymptomatic). Last mammogram was performed 1 year(s) and 6 month(s) ago. Patient History: Menarche at age 12. First Full-Term at age 17. Left ovary removed at age 48. Right ovary removed at age 48. Hysterectomy at age 48. Postmenopausal. Estrogen for 3 months. Patient used Hormonal Contraceptives for 2 years. Sister had breast cancer, age 62. Risk Values: Antonieta 5 year model risk: 2.7%. NCI Lifetime model risk: 10.8%. Prior Study Comparison: 06/12/2015 Screening Mammogram, [facility] . 03/09/2017 Screening Mammogram, [facility] . 10/20/2020 Bilateral Screening Mammogram, [facility]. Tissue Density: There are scattered fibroglandular densities. Findings: Analyzed By CAD. Unchanged small intramammary lymph node lateral left breast. Unchanged asymmetric density superior anterior right MLO view. No significant change from prior exams. Overall Assessment: Benign, BI-RAD 2 Management: Screening Mammogram of both breasts in 1 year. 1. Patient should continue monthly self breast exams. 2. A clinical breast exam by your physician is recommended on an annual basis. 3. This exam should not preclude additional follow-up of suspicious palpable abnormalities. Electronically signed and approved by: Teofilo Nails M.D. Radiologist
== END | disposition home or self-care (01) ==
LOC: RADMAMWWP 16:51
PROVIDERS: ATTEND Family Medicine
DX: Z12.31 Encounter for screening mammogram for malignant neoplasm of breast (principal); Z80.3 Family history of malignant neoplasm of breast; Z78.0 Asymptomatic menopausal state
CPT/HCPCS: 77063; 77067

== ENCOUNTER → 2023-04-05 | Outpatient (CLI) | payer MEDICARE ==
--- NOTE | 2023-04-05 22:46 | CTL ---
EXAMINATION TYPE: CT Low Dose Lung DATE OF EXAM ORDERED: 04/05/2023 HISTORY: Long-term tobacco use. Lung cancer screening CT DLP: 78.[address] CTDI: 2.2 mGy Automated exposure control for dose reduction was used. SCREENING VISIT: First exam after baseline COMPARISON: Prior study 2020 TECHNIQUE: Low dose computed tomography scan was performed through the chest at 1 mm thick sections a nd reconstructed images in multiple planes at 1 mm and [address] DIAGNOSTIC QUALITY: Satisfactory FINDINGS: LUNG NODULES: None. LUNGS: COPD: Severity: None Fibrosis: Severity: None Lymph nodes: None Other findings: None RIGHT PLEURAL SPACE: Effusion: None Calcification: Focal posterior calcification right lung apex axial image 46 redemonstrated. Thickening: None Pneumothorax: None LEFT PLEURAL SPACE: Effusion: None Calcification: None Thickening: None Pneumothorax: None HEART: Heart Size: Normal Coronary Calcification: Moderate Pericardial Effusion: None OTHER FINDINGS: Upper abdomen: None Bony thorax: Slight scoliotic curvature with multilevel spurring redemonstrated. Supraclavicular region: None Other: None IMPRESSION: No significant new or enlarging pulmonary nodules. No significant change from prior study . CT LUNG RAD AND CT CHEST RECOMMENDATION: Lung-Rad 1 Negative: Continue annual screening with LDCT in 12 months. S Modifier (other clinically significant findings): None
== END | disposition home or self-care (01) ==
LOC: RADCTMAIN 13:10
PROVIDERS: ATTEND Family Medicine
DX: Z12.2 Encounter for screening for malignant neoplasm of respiratory organs (principal); F17.210 Nicotine dependence, cigarettes, uncomplicated
CPT/HCPCS: 71271

== ENCOUNTER → 2023-05-09 | Outpatient (CLI) | payer MEDICARE ==
--- NOTE | 2023-05-10 15:02 | MM ---
Reason for Exam: Screening (asymptomatic). Last screening mammogram was performed 12 month(s) ago. Patient History: Menarche at age 12. First Full-Term at age 17. Left ovary removed at age 48. Right ovary removed at age 48. Hysterectomy at age 48. Postmenopausal. Estrogen for 3 months. Patient used Hormonal Contraceptives for 2 years. Sister had breast cancer, age 62. Risk Values: Antonieta 5 year model risk: 2.8%. NCI Lifetime model risk: 10.4%. Prior Study Comparison: 03/09/2017 Screening Mammogram, [facility] . 10/20/2020 Bilateral Screening Mammogram, [facility]. 05/05/2022 Bilateral MG 3D screening mammo w/cad, [facility]. Tissue Density: There are scattered fibroglandular densities. Findings: Analyzed By CAD. Pattern appears symmetrical and stable. No significant interval change is evident. Benign punctate calcifications are present bilaterally. No suspicious cluster of microcalcifications is evident. No suspicious groups of microcalcifications, spiculated or lobular masses, architectural distortion or other secondary signs of malignancy are mammographically apparent. Overall Assessment: Benign, BI-RAD 2 Management: Screening Mammogram of both breasts in 1 year. A negative mammogram report should not preclude additional follow up of suspicious palpable abnormalities. Patient should continue monthly self breast exam. A clinical breast exam by your physician is recommended on an annual basis and results should be correlated with mammographic findings. Electronically signed and approved by: Fredrick Melgar D.O. Radiologis
== END | disposition home or self-care (01) ==
LOC: RADMAMWWP 07:25
PROVIDERS: ATTEND Family Medicine
DX: Z12.31 Encounter for screening mammogram for malignant neoplasm of breast (principal); Z78.0 Asymptomatic menopausal state; Z80.3 Family history of malignant neoplasm of breast
CPT/HCPCS: 77063; 77067

== ENCOUNTER → 2024-05-17 | Outpatient (CLI) | payer MEDICARE ==
--- NOTE | 2024-05-17 10:56 | CTL ---
EXAMINATION TYPE: CT Low Dose Lung DATE OF EXAM: 05/17/2024 9:55 AM CLINICAL INDICATION: Female, 64 years old with history of F17.210 NICOTINE DEPENDENCE, CIGARETTES, UN COMPLIC; , history of tobacco use. COMPARISON: 04/05/2023. TECHNIQUE: Multiple axial non-contrast scans were obtained from approximately the lung apices through the upper abdomen. Coronal and sagittal reformatted images were obtained. Low dose technique was uti lized. MIP were created on a separate workstation and submitted for review. CT DLP: 65 mGycm, Automated exposure control for dose reduction was used. CT Contrast: Contrast used: None Oral contrast used: None FINDINGS: Lack of intravenous contrast and low dose technique limits the evaluation of the vascular and soft ti ssue structures. LUNGS: No evidence of pulmonary fibrosis. No evidence of focal consolidation, pneumothorax or pleural effusion. Centrilobular emphysema changes. Nodules: RUL: Calcified granulomas/degeneration changes posteriorly suspected atelectasis and/or small pul monary nodule measuring 5 mm series 5 image 16. RML: None. RLL: None. FLORENCIO: None. LLL: None. AIRWAY: Patent and unremarkable. HEART: Size within normal limits.Atherosclerosis of the arterial vasculature. MEDIASTINUM: No gross evidence of adenopathy. VASCULATURE: No aortic aneurysm. MUSCULOSKELETAL: No acute osseous abnormalities SOFT TISSUES/LYMPH NODES: Unremarkable. LOWER NECK: No significant findings. UPPER ABDOMEN: No significant findings. IMPRESSION: 1. No clinically significant pulmonary nodules. 2. Mild emphysema. 3. Mild coronary artery atherosclerosis. CT LUNG RAD AND CT CHEST RECOMMENDATION: Lung-Rad 2 Benign Appearance or Behavior: Continue annual sc reening with LDCT in 12 months. S Modifier (other clinically significant findings): None Recommend smoking cessation (if current smoker), or continuation of smoking cessation (if prior smoke r). Annual screening for lung cancer with low-dose computed tomography is recommended in adults ages 55 to 77 years who have a 30 pack-year smoking history and currently smoke or have quit within the pa st 15 years. Screening should be discontinued once a person has not smoked for 15 years or develops a health problem that substantially limits life expectancy or the ability or willingness to have curat sandra lung surgery. Lung rads 2021 [email or web address] [facility], , 05/17/2024 10:53 AM
--- NOTE | 2024-05-17 11:08 | MM ---
Reason for Exam: Screening (asymptomatic). Last mammogram was performed 1 year(s) and 1 month(s) ago. Patient History: Menarche at age 12. First Full-Term at age 17. Left ovary removed at age 48. Right ovary removed at age 48. Hysterectomy at age 48. Postmenopausal. Estrogen for 3 months. Patient used Hormonal Contraceptives for 2 years. Sister had breast cancer, age 62. Risk Values: Antonieta 5 year model risk: 2.8%. NCI Lifetime model risk: 10.0%. Prior Study Comparison: 10/20/2020 Bilateral Screening Mammogram, [facility]. 05/05/2022 Bilateral MG 3D screening mammo w/cad, [facility]. 05/09/2023 Bilateral MG 3D screening mammo w/cad, [facility]. Tissue Density: The breasts are heterogeneously dense, which may obscure small masses. Findings: Analyzed By CAD. Right breast: There is no suspicious group of microcalcifications or new suspicious mass. Left breast: There is no suspicious group of microcalcifications or new suspicious mass. Overall Assessment: Negative, BI-RAD 1 Management: Screening Mammogram of both breasts in [address] [facility] will attempt to contact patient to return for supplemental views and ultrasound if indicated. Patient should continue monthly self-breast exams. A clinical breast exam by your physician is recommended on an annual basis. This exam should not preclude additional follow-up of suspicious palpable abnormalities. Note on Antonieta scores and lifetime risk: 1. A Antonieta score greater than 3% is considered moderate risk. If this is the case, consider specialist referral to assess eligibility for a risk reducing agent. 2. If overall lifetime risk for the development of breast cancer is 20% or higher, the patient may qualify for future screening with alternating mammogram and breast MRI. [facility], , 05/17/2024 11:04 AM. Electronically signed and approved by: Aj Hinson DO
--- NOTE | 2024-05-17 18:07 | BD ---
EXAMINATION TYPE: Axial Bone Density DATE OF EXAM: 05/17/2024 CLINICAL HISTORY: 64 years old Female. ICD-10 CODE: Z78.0 Postmenopausal , Z78.0 Height: 62.25 Weight: 140 FRAX RISK QUESTIONS: Family History (Parent hip fracture): yes History of Fracture in Adulthood: yes Secondary Osteoporosis: no Current Tobacco Use: yes RISK FACTORS HISTORY OF: History of Wrist Fracture: yes When: 1986 1999 Surgery to Spine/Hip(right/left)/Wrist (right/left): no MEDICATIONS: Thyroid Medications: no Osteoporosis Medications: no EXAM MEASUREMENTS: Bone mineral densitometry was performed using the [employer] System. Bone mineral density as measured about the Lumbar spine is: ----- L1-L4(G/cm2): 0.962 T Score Values are as follows: ----- L1: -2.3 ----- L2: -2.9 ----- L3: -2.2 ----- L4: -0.3 ----- L1-L4: -1.8 Z Score Values are as follows: ----- L1: -0.6 ----- L2: -1.2 ----- L3: -0.6 ----- L4: 1.3 ----- L1-L4: -0.2 Bone mineral density has: Decreased 18.4% since study of: 10/20/2020 Bone mineral density about the R hip (g/cm2): 0.722 Bone mineral density about the L hip (g/cm2): 0.775 T Score values are as follows: -----R Neck: -2.7 -----L Neck: -2.4 -----R Total: -2.3 -----L Total: -1.8 Z Score values are as follows: -----R Neck: -1.2 -----L Neck: -0.9 -----R Total: -1.0 -----L Total: -0.6 Bone mineral density has: Decreased -7.5% since study of: 10/20/2020 FRAX%s: The graph provided illustrates a 26.5% chance for a major osteoporotic fx and a 10.4% chance for the hips probability for fx in 10 years time. IMPRESSION: Osteoporosis (T Score less than -2.5). There is increased fracture risk and therapy is usually indicated based on age. Re-Screen 1-2 years. NOTE: T-SCORE=SD OF THE YOUNG ADULT MEAN. [facility], , 05/17/2024 6:04 PM
== END | disposition home or self-care (01) ==
LOC: RADMAMWWP 06:57
PROVIDERS: ATTEND Family Medicine
DX: Z12.31 Encounter for screening mammogram for malignant neoplasm of breast (principal); J43.9 Emphysema, unspecified; I25.10 Atherosclerotic heart disease of native coronary artery without angina pectoris; F17.210 Nicotine dependence, cigarettes, uncomplicated; R92.333 Mammographic heterogeneous density, bilateral breasts; Z80.3 Family history of malignant neoplasm of breast; Z78.0 Asymptomatic menopausal state; Z12.2 Encounter for screening for malignant neoplasm of respiratory organs; Z90.722 Acquired absence of ovaries, bilateral
CPT/HCPCS: 71271; 77063; 77067; 77080